=== PATIENT | male | born 1985 | race Asian ===

== ENCOUNTER 2024-02-16 12:04 | Emergency (ER) | payer OTHER ==
[~2024-02-16] VITALS: Ht 172.7 cm; Wt 72.0 kg
[2024-02-16 12:08] VITALS: O2SAT 99
[2024-02-16] MEDS: MORPHINE SULFATE 4 MG/ML INJ (FOR IV/IM USE) IV STA (12:12)
[2024-02-16 13:04] LABS: BASOPHILS % 1.2 % (0.0-2.0); EOSINOPHILS % 4.8 % (0.0-5.0); HEMATOCRIT. 44.2 % (42.0-52.0); HEMOGLOBIN. 14.7 g/dL (14.0-18.0); LYMPHOCYTES % 16.5 % (20.0-50.0); MEAN CORPUSCULAR HEMOGLOBIN 31.4 pg (28.0-32.0); MEAN CORPUSCULAR HGB CONC 33.3 g/dL (31.0-37.0); MEAN CORPUSCULAR VOLUME 94.3 fL (80.0-94.0); MEAN PLATELET VOLUME 7.3 fl (7.4-10.4); MONOCYTES % 8.1 % (2.0-8.0); NEUTROPHILS % 69.4 % (40.0-76.0); PLATELET 205 x1000/uL (130-400); RED BLOOD CELL COUNT 4.69 mill/uL (4.7-6.1); WHITE BLOOD COUNT 4.8 x1000/uL (4.5-11.0)
[2024-02-16 13:33] LABS: CHLORIDE 103 mEq/L (98-107); POTASSIUM 3.7 mEq/L (3.5-5.1); SODIUM 138 mEq/L (136-145)
[2024-02-16 13:34] LABS: CALCIUM 9.5 mg/dL (8.7-10.4); CARBON DIOXIDE 29 mEq/L (21-32)
[2024-02-16 13:39] LABS: GLUCOSE 109 mg/dL (70-105); UREA NITROGEN BLOOD 16 mg/dL (9-23)
[2024-02-16 13:41] LABS: ALANINE AMINOTRANSFERASE 51 IU/L (10-49); ALBUMIN 4.5 g/dL (3.2-4.8); ASPARTATE AMINOTRANSFERASE 36 IU/L (<34); BILIRUBIN TOTAL 0.7 mg/dL (0.1-1.0); PROTEIN TOTAL 6.6 g/dL (6.0-8.3)
[2024-02-16] MEDS ORDERED: IOHEXOL-300 100 ML BOTTLE ONE ×2 (15:41→20:06)
[2024-02-16 15:51] LABS: CLARITY URINE CLEAR (CLEAR); COLOR URINE YELLOW (YELLOW); GLUCOSE URINE NEGATIVE (NEGATIVE); KETONES URINE NEGATIVE (NEGATIVE); LEUKOCYTE ESTERASE URINE NEGATIVE (NEGATIVE); NITRITE URINE NEGATIVE (NEGATIVE); OCCULT BLOOD URINE NEGATIVE (NEGATIVE); PH URINE 7.5 (4.5-8.0); PROTEIN URINE NEGATIVE (NEGATIVE); UROBILINOGEN URINE 0.2 E.U./dL (0.2-1.0)
[2024-02-16] MEDS ORDERED: IBUP-2030 MT (16:30)
[2024-02-16] MEDS ORDERED: HYDR-4001 MT (16:30)
[2024-02-16] MEDS ORDERED: KETOROLAC 30MG/ML VIAL IV ONE (16:30)
[2024-02-16 16:50] VITALS: BP 126/76; PULSE 74; RESP 16; TEMP 36.44736; O2SAT 99
== END 2024-02-16 17:36 | disposition home or self-care (01) ==
LOC: ER 13:54
DX: R51.9 Headache, unspecified (principal); M25.552 Pain in left hip; V49.49XA Driver injured in collision with other motor vehicles in traffic accident, initial encounter; Y93.89 Activity, other specified; Y92.89 Other specified places as the place of occurrence of the external cause; Y99.8 Other external cause status
CPT/HCPCS: 80053; 81003; 83690; 85025; 36415; 70450; 71260; 72125; 74177; 99285; Q9967; Z7610